=== PATIENT | female | born 1985 | race Caucasian/White ===

== ENCOUNTER 2016-06-28 07:23 | Inpatient (IN) | payer MEDICAID, OTHER ==
[~2016-06-28] VITALS: Ht 160 cm; Wt 72.6 kg
[2016-06-28] MEDS ORDERED: MISOPROSTOL 100MCG TABLET VG SCH (07:30)
[2016-06-28] MEDS ORDERED: LIDOCAINE HCL 1% 20ML VIAL (Pyxis) INJ INFIL SCH (07:30)
[2016-06-28] MEDS ORDERED: CARBOPROST TROMETHAMINE 250 MCG/ML AMPUL IM PRN (07:30)
[2016-06-28] MEDS ORDERED: DEXT 5%/LR + PITOCIN 20UNITS/L 1,000 ML IV SCH ×2 (07:30→08:18)
[2016-06-28] MEDS ORDERED: BUTORPHANOL TARTRATE 2 MG/ML VIAL IV PRN (07:30)
[2016-06-28] MEDS ORDERED: PENICILLIN G POTASSIUM 5 MMU in DEXT 5% WATER 100 ML IV SCH (07:30)
[2016-06-28] MEDS ORDERED: NALOXONE HCL 0.4 MG/ML 1ML VIAL IM PRN (07:30)
[2016-06-28] MEDS ORDERED: RHO(D) IMMUNE GLOBULIN 300 MCG/SYR IM ONE (07:30)
[2016-06-28] MEDS ORDERED: LACTATED RINGERS 1,000 ML IV SCH (07:30)
[2016-06-28] MEDS ORDERED: METHYLERGONOVINE MALEATE 0.2 MG/ML IM PRN (07:30)
[2016-06-28 08:19] LABS: PARTIAL THROMBOPLASTIN TIME 24.9 sec (24.0-34.0); PROTHROMBIN TIME 9.9 sec
[2016-06-28 08:20] LABS: BASOPHILS % 0.6 % (0.0-2.0); DIFFERENTIAL COMMENT 0; EOSINOPHILS % 0.5 % (0.0-5.0); HEMATOCRIT. 32.8 % (36.0-48.0); LYMPHOCYTES % 14.1 % (20.0-50.0); MEAN CORPUSCULAR HEMOGLOBIN 26.4 pg (28.0-32.0); MEAN CORPUSCULAR HGB CONC 33.4 g/dL (31.0-37.0); MEAN CORPUSCULAR VOLUME 79.1 fL (81.0-99.0); MEAN PLATELET VOLUME 8.8 fl (7.4-10.4); MONOCYTES % 5.4 % (2.0-8.0); NEUTROPHILS % 79.4 % (40.0-76.0); PLATELET 250 x1000/uL (130-400); RED BLOOD CELL COUNT 4.15 mill/uL (4.2-5.4); RED CELL DISTRIBUTION WIDTH 12.8 % (11.6-14.6); WHITE BLOOD COUNT 18.2 x1000/uL (4.5-11.0)
[2016-06-28] MEDS ORDERED: ACETAMINOPHEN WITH CODEINE 300/30MG TABLET PO PRN (08:30)
[2016-06-28] MEDS ORDERED: RHO(D) IMMUNE GLOBULIN 300 MCG/SYR IM PRN (08:30)
[2016-06-28] MEDS ORDERED: HEMORRHOIDAL SUPP PR PRN (08:30)
[2016-06-28] MEDS ORDERED: LANOLIN OINT 0.25 GM TUBE TOP PRN (08:30)
[2016-06-28] MEDS ORDERED: INFLUENZA VIRUS VACCINE 0.5ML SYR IM ONE (08:30)
[2016-06-28] MEDS ORDERED: DIPHENHYDRAMINE 25MG CAPSULE PO PRN (08:30)
[2016-06-28] MEDS ORDERED: TETANUS, DIPHTHERIA, PERTUSSIS VAC/PF 0.5ML (>7YR OLD) IM ONE (08:30)
[2016-06-28] MEDS ORDERED: GLYCERIN/WITCH HAZEL LEAF MEDICATED PAD TOP PRN (08:30)
[2016-06-28 08:36] LABS: ALANINE AMINOTRANSFERASE 22 IU/L (13-61); ALBUMIN 2.5 g/dL (3.4-5.0); ANION GAP 14; CALCIUM 8.3 mg/dL (8.5-10.1); CARBON DIOXIDE 24 mEq/L (21-32); CHLORIDE 105 mEq/L (98-107); INDEX HEMOLYSI 2 (1-3); INDEX ICTERIC 1 (1-4); INDEX LIPEMIC 1 (1-3); UREA NITROGEN BLOOD 8 mg/dL (7-21); eGFR > 60 mL/min (>60)
[2016-06-28 09:55] VITALS: BP 104/77
[2016-06-28 10:30] VITALS: BP 95/66
[2016-06-28 10:36] LABS: GLUCOSE URINE NEGATIVE (NEGATIVE); KETONES URINE 1+ (NEGATIVE); LEUKOCYTE ESTERASE URINE 2+ (NEGATIVE); NITRITE URINE POSITIVE (NEGATIVE); OCCULT BLOOD URINE 3+ (NEGATIVE); PROTEIN URINE 3+ (NEGATIVE); SPECIFIC GRAVITY URINE 1.031 (1.005-1.030)
[2016-06-28 10:41] LABS: CLARITY URINE CLOUDY (CLEAR); COLOR URINE BLOODY (YELLOW)
[2016-06-28 11:17] LABS: *BARBITURATES SCREEN URINE NEGATIVE (NEGATIVE); *BENZODIAZEPINES SCREEN URINE NEGATIVE (NEGATIVE); *COCAINE SCREEN URINE NEGATIVE (NEGATIVE); METHADONE URINE SCREEN NEGATIVE (NEGATIVE); OPIATES URINE SCREEN NEGATIVE (NEGATIVE); PHENCYCLIDINE URINE SCREEN NEGATIVE (NEGATIVE)
[2016-06-28 11:20] LABS: *AMPHETAMINES SCREEN URINE PRESUMTIVE POSITIVE (NEGATIVE); CANNABINOID URINE SCREEN PRESUMTIVE POSITIVE (NEGATIVE); ECSTASY MDMA SCREEN URINE CONF.TEST INDICATED (NEGATIVE)
[2016-06-28 11:25] LABS: WBC URINE TNTC /hpf (0-2)
[2016-06-28 11:26] LABS: BACTERIA URINE 3+; RBC URINE TNTC /hpf (0-2); SQUAMOUS EPITHELIAL CELL URINE 1+ /lpf (RARE/1+)
[2016-06-28] MEDS: ACETAMINOPHEN WITH CODEINE 300/30MG TABLET PO PRN (12:25)
[2016-06-28] MEDS ORDERED: PENICILLIN G POTASSIUM 2.5 MMU in DEXTROSE 5% WATER 50 ML IV SCH (13:30)
[2016-06-28 13:44] LABS: HEPATITIS B SURFACE ANTIGEN NEGATIVE; RUBELLA IGG 63.2 IU/mL (4.99-10)
[2016-06-28 16:40] VITALS: BP 96/68
[2016-06-28] MEDS: DOCUSATE SODIUM 100MG CAPSULE PO SCH (20:08)
[2016-06-28] MEDS: PRENATAL VIT/FE FUMARATE/FA TABLET PO SCH (20:08)
[2016-06-28] MEDS: IBUPROFEN 400MG TABLET PO PRN (20:10)
[2016-06-29] VITALS: BP 94/66
[2016-06-29 06:48] LABS: BASOPHILS % 0.2 % (0.0-2.0); DIFFERENTIAL COMMENT 0; EOSINOPHILS % 0.7 % (0.0-5.0); HEMATOCRIT. 30.7 % (36.0-48.0); HEMOGLOBIN. 10.1 g/dL (12.0-16.0); LYMPHOCYTES % 11.9 % (20.0-50.0); MEAN CORPUSCULAR HEMOGLOBIN 26.3 pg (28.0-32.0); MEAN CORPUSCULAR VOLUME 79.6 fL (81.0-99.0); MEAN PLATELET VOLUME 8.3 fl (7.4-10.4); MONOCYTES % 6.6 % (2.0-8.0); NEUTROPHILS % 80.6 % (40.0-76.0); PLATELET 193 x1000/uL (130-400); RED BLOOD CELL COUNT 3.85 mill/uL (4.2-5.4); RED CELL DISTRIBUTION WIDTH 13.1 % (11.6-14.6); WHITE BLOOD COUNT 18.3 x1000/uL (4.5-11.0)
[2016-06-29] MEDS: PRENATAL VIT/FE FUMARATE/FA TABLET PO SCH (08:35)
[2016-06-29] MEDS: IBUPROFEN 400MG TABLET PO PRN ×2 (08:35→15:04)
[2016-06-29 09:00] VITALS: BP 100/70
[2016-06-29] MEDS ORDERED: MEDROXYPROGESTERONE ACETATE 150MG/ML VIAL IM NR (11:30)
[2016-06-29] MEDS: ACETAMINOPHEN WITH CODEINE 300/30MG TABLET PO PRN ×2 (13:21→21:03)
[2016-06-29 14:50] VITALS: BP 92/70
[2016-06-29] MEDS: FERROUS SULFATE 325MG TABLET PO SCH ×2 (15:04→18:33)
[2016-06-29] MEDS: NITROFURANTOIN 100MG M/M CAPSULE PO SCH (15:04)
[2016-06-29] MEDS: DOCUSATE SODIUM 100MG CAPSULE PO SCH (21:05)
[2016-06-30] VITALS: BP 99/68
[2016-06-30] MEDS: NITROFURANTOIN 100MG M/M CAPSULE PO SCH (02:45)
[2016-06-30] MEDS: FERROUS SULFATE 325MG TABLET PO SCH (07:44)
[2016-06-30] MEDS: PRENATAL VIT/FE FUMARATE/FA TABLET PO SCH (07:44)
[2016-06-30 07:46] VITALS: BP 90/68
[2016-07-07 04:08] LABS: AMPHETAMINE CONF URINE Positive (.); CANNABINOID CONFIRMATION URINE Comment: (.)
== END 2016-06-30 11:00 | disposition home or self-care (01) | DRG 560 ==
LOC: L&D 07:23 → OBSVTOIN 07:23 → 7EST PP/OB 09:50
PROVIDERS: ADMIT Specialist; ATTEND Specialist
PROC: 10E0XZZ Delivery of Products of Conception, External Approach (ICD-10-PCS; principal; 2016-06-28 07:55)
DX: O99.313 Alcohol use complicating pregnancy, third trimester (principal); O60.14X0 Preterm labor third trimester with preterm delivery third trimester, not applicable or unspecified; N39.0 Urinary tract infection, site not specified; O99.324 Drug use complicating childbirth; O76 Abnormality in fetal heart rate and rhythm complicating labor and delivery; O99.334 Smoking (tobacco) complicating childbirth; F12.10 Cannabis abuse, uncomplicated; F15.10 Other stimulant abuse, uncomplicated; Y90.9 Presence of alcohol in blood, level not specified; O69.1XX0 Labor and delivery complicated by cord around neck, with compression, not applicable or unspecified; O75.89 Other specified complications of labor and delivery; O99.02 Anemia complicating childbirth; Z3A.32 32 weeks gestation of pregnancy; Z37.0 Single live birth; O09.43 Supervision of pregnancy with grand multiparity, third trimester; O46.93 Antepartum hemorrhage, unspecified, third trimester
CPT/HCPCS: 36415; 76815; 80053; 80102; 80305; 80349; 80359; 81001; 85025; 85384; 85610; 85730; 86592; 86703; 86762; 86850; 86900; 86920; 87340; 90715; J0595; J1050; J2540; J2590; J7060; J7120